=== PATIENT | male | born 1955 | race Hispanic/Latino ===

== ENCOUNTER 2023-09-12 08:37 | Day surgery (SDC) | payer MEDICARE ==
[2023-09-08 14:27] LABS: BASOPHILS # (AUTO) 0.03 K/uL (0.00-0.20); BASOPHILS % (AUTO) 0.4 % (0.0-5.0); EOSINOPHILS # (AUTO) 0.17 K/uL (0.00-0.70); HEMATOCRIT 40.2 % (42-54); IMMATURE GRANULOCYTE ABSOLUTE 0.03 K/uL (0-1); LYMPHOCYTES # (AUTO) 1.4 K/uL (1.0-4.8); LYMPHOCYTES % (AUTO) 17.3 % (21.0-51.0); MEAN CORPUSCULAR HEMOGLOBIN 28.3 pg (27.0-33.0); MEAN CORPUSCULAR HGB CONC 32.3 g/dL (32.0-36.0); MEAN CORPUSCULAR VOLUME 87.6 fL (79-99); MONOCYTES # (AUTO) 0.6 K/uL (0.1-1.0); MONOCYTES % (AUTO) 7.7 % (3.0-13.0); NEUTROPHILS % (AUTO) 72.2 % (40.0-77.0); PLATELET COUNT (AUTO) 248 K/uL (130-400); RED BLOOD CELL COUNT(AUTO) 4.59 MIL/uL (4.50-6.20); RED CELL DISTRIBUTION WIDTH 13.7 % (11.0-15.5); WHITE BLOOD COUNT (AUTO) 8.3 K/uL (4.8-10.8)
[2023-09-08 14:52] LABS: POTASSIUM 3.6 mmol/L (3.5-5.1)
[2023-09-08 15:31] VITALS: BP 190/97; PULSE 65; RESP 18
[2023-09-12] VITALS (16 sets, daily range): BP systolic 122–148; BP diastolic 68–90; PULSE 65–77; RESP 15–19
[~2023-09-12] VITALS: Ht 162.6 cm; Wt 102.1 kg
[~2023-09-12 08:37] MED LIST: ATOR20TA65 PO; DAPA10TA PO; ICOS1CAP PO; LISI40TA9 PO; MELO-108 PO; METF-446 PO
[2023-09-12] MEDS ORDERED: 0.9%NACL 1000ML 1,000 ML IV ONE (08:43)
[2023-09-12] MEDS ORDERED: CEFAZOLIN SODIUM 2 GM VIAL ONE (08:43)
[2023-09-12] MEDS ORDERED: CEFAZOLIN SODIUM 1 GM VIAL ONE (09:30)
[2023-09-12] MEDS ORDERED: PROPOFOL 10 MG/ML 20ML VIAL IV ONE (12:57)
[2023-09-12] MEDS ORDERED: FENTANYL CITRATE PF 50 MCG/1 ML 2ML VIAL ONE (13:01)
[2023-09-12] MEDS: CEFAZOLIN SODIUM 3 GM VIAL IVPB ONE (13:32)
[2023-09-12] MEDS: BUPIVACAINE/PF 0.25% 30ML VIAL IJ ONE (13:35)
[2023-09-12] MEDS: LIDOCAINE 1%-EPI 1:100,000 20 ML VIAL ONE (13:35)
[2023-09-12] MEDS ORDERED: GLYCOPYRROLATE 0.2 MG/ML 5 ML VIAL ONE (14:02)
== END 2023-09-12 15:45 | disposition home or self-care (01) ==
LOC: DAH 08:37
PROVIDERS: ATTEND Surgery
DX: D17.1 Benign lipomatous neoplasm of skin and subcutaneous tissue of trunk (principal); I11.9 Hypertensive heart disease without heart failure; E78.1 Pure hyperglyceridemia; K76.0 Fatty (change of) liver, not elsewhere classified; E03.9 Hypothyroidism, unspecified; F41.9 Anxiety disorder, unspecified; M19.90 Unspecified osteoarthritis, unspecified site; E13.40 Other specified diabetes mellitus with diabetic neuropathy, unspecified; E78.5 Hyperlipidemia, unspecified; E66.01 Morbid (severe) obesity due to excess calories; Z68.38 Body mass index [BMI] 38.0-38.9, adult; Z79.899 Other long term (current) drug therapy; Z79.84 Long term (current) use of oral hypoglycemic drugs; Z79.4 Long term (current) use of insulin; Z82.49 Family history of ischemic heart disease and other diseases of the circulatory system; Z83.3 Family history of diabetes mellitus; Z83.79 Family history of other diseases of the digestive system
CPT/HCPCS: 80048; 85025; 36415; 21931; 82948 ×2; 88304; 93005; A6260; A4663; A4452; J0690 ×3; J3010; J3490 ×2; J7030; J0665; J2704; A4930; A4215; A4223; A4222; A4221